=== PATIENT | female | born 1990 ===

== ENCOUNTER 2019-08-02 11:25 | Emergency (ER) | payer SELFPAY ==
[~2019-08-02] VITALS: Ht 157.5 cm; Wt 56.7 kg
[2019-08-02] MEDS ORDERED: VALA500 PO (11:34)
[2019-08-02 13:00] LABS: Source, Urine Clean Catch
[2019-08-02 13:05] LABS: Appearance, Urine Turbid (Clear); Bilirubin, Urine 2+ (Neg); Blood, Urine 3+ (Neg); Color, Urine Amber (P-Yellow); Glucose Qualitative, Urine Neg (Neg); Ketones, Urine 1+ (Neg); Leukocyte Esterase, Urine Neg (Neg); Nitrite, Urine Pos (Neg); Protein, Urine 2+ (Neg); Urobilinogen, Urine 3+ (Normal)
[2019-08-02 13:16] LABS: Squamous Epithelial Cells Not Seen /hpf (Few)
[2019-08-02 13:17] LABS: Amorphous Heavy (0-Heavy); Bacteria Mod /hpf
[2019-08-02] MEDS ORDERED: FLUC150A PO (13:18)
[2019-08-02] MEDS ORDERED: Pyridium100 MG PO (13:18)
[2019-08-02] MEDS ORDERED: Cefpodoxime Pr100 MG PO (13:18)
== END 2019-08-02 13:40 | disposition home or self-care (01) ==
LOC: ER 11:25
PROVIDERS: Physician Assistant
DX: N39.0 Urinary tract infection, site not specified (principal); Z79.899 Other long term (current) drug therapy
CPT/HCPCS: 81001; 81025; 87086; 99283